=== PATIENT | female | born 1965 | race Caucasian/White ===

== ENCOUNTER 2019-01-04 18:54 | Emergency (ER) | payer SELFPAY ==
[~2019-01-04] VITALS: Ht 162.6 cm; Wt 77.3 kg
[2019-01-04 18:58] VITALS: Ht 162.6 cm; Wt 77.3 kg
[2019-01-04] MEDS ORDERED: ASPIRIN 81 MG TAB PO STA (20:48)
[2019-01-04] MEDS ORDERED: NITROGLYCERIN 2% 1 GM OINT PKT TD STA (20:48)
[2019-01-04] MEDS: NITROGLYCERIN (SL) 0.4 MG TAB SL PRN ×2 (21:17→21:22)
[2019-01-04] MEDS ORDERED: ACETAMINOPHEN 325 MG TAB PO PRN ×2 (22:00→22:30)
[2019-01-04] MEDS ORDERED: ONDANSETRON 4 MG INJ IV PRN ×2 (22:00→22:30)
[2019-01-04] MEDS ORDERED: ACETAMINOPHEN 325 MG TAB PO ONE (22:00)
[2019-01-04 22:22] VITALS: BP 105/72; PULSE 51; RESP 15
[2019-01-04] MEDS ORDERED: NACL 0.9% 3 ML SYG IV SCH (22:30)
[2019-01-04] MEDS ORDERED: morphine 2 MG INJ IV PRN (22:30)
[2019-01-04] MEDS ORDERED: NITROGLYCERIN (SL) 0.4 MG TAB SL PRN (22:30)
[2019-01-04] MEDS ORDERED: BISACODYL (EC) 5 MG TAB PO PRN (22:30)
[2019-01-04] MEDS ORDERED: DOCUSATE SODIUM 100 MG CAP PO PRN (22:30)
--- NOTE | 2019-01-04 22:36 | ERD ---
ER Documentation Chief Complaint Chief Complaint CP, SOB, N/V STARTED AFTER CLEANING DUST; STATES HX OF ASTHMA HPI Patient is a 53-year-old female with no medical problems who presents with chest pain shortness of breath. The symptoms started this morning but were worse with walking. The patient has had vomiting as well. She felt like her left upper extremity, face, and ear were numb. She said the symptoms come and go. She t ook 81 mg aspirin today. Upon review of old medical records this is the patient's first visit to the emergency department. The patient does not currently have a primary doctor. ROS All systems reviewed and are negative except as per history of present illness. PMhx/Soc History of Surgery: Yes (c section x3, appendectomy, tonsillectomy ) Anesthesia Reaction: No Hx Neurological Disorder: No Hx Respiratory Disorders: No Hx Cardiac Disorders: No Hx Psychiatric Problems: No Hx Miscellaneous Medical Probl: No Hx Alcohol Use: No Hx Substance Use: No Hx Tobacco Use: No Smoking Status: Never smoker FmHx Family History: No coronary disease Physical Exam Vitals Vital Signs Date Temp Pulse Resp B/P (MAP) Pulse Ox O2 O2 Flow FiO2 Time Delivery Rate 01/04/19 51 15 105/72 100 Room Air 22:22 (83) 01/04/19 59 21 119/75 96 Room Air 21:15 (90) 01/04/19 98.9 70 19 116/59 99 18:58 (78) Physical Exam Const: No acute distress Head: Atraumatic Eyes: Normal Conjunctiva ENT: Normal External Ears, Nose and Mouth. Neck: Full range of motion. No meningismus. Resp: Clear to auscultation bilaterally Cardio: Regular rate and rhythm, no murmurs Abd: Soft, non tender, non distended. Normal bowel sounds Skin: No petechiae or rashes Back: No midline or flank tenderness Ext: No cyanosis, or edema Neur: Awake and alert Psych: Normal Mood and Affect Result Diagram: 01/04/19211101/04/192111 Results 24 hrs Laboratory Tests Test 01/04/19 21:12 White Blood Count 5.6 10^3/ul Red Blood Count 4.23 10^6/ul Hemoglobin 12.9 g/dl Hematocrit 38.3 % Mean Corpuscular Volume 90.5 fl Mean Corpuscular Hemoglobin 30.5 pg Mean Corpuscular Hemoglobin Concent 33.7 g/dl Red Cell Distribution Width 12.0 % Platelet Count 208 10^3/UL Mean Platelet Volume 9.4 fl Immature Granulocytes % 0.200 % Neutrophils % 41.8 % Lymphocytes % 47.5 % Monocytes % 7.3 % Eosinophils % 2.5 % Basophils % 0.7 % Nucleated Red Blood Cells % 0.0 /100WBC Immature Granulocytes # 0.010 10^3/ul Neutrophils # 2.3 10^3/ul Lymphocytes # 2.7 10^3/ul Monocytes # 0.4 10^3/ul Eosinophils # 0.1 10^3/ul Basophils # 0.0 10^3/ul Nucleated Red Blood Cells # 0.0 10^3/ul Sodium Level 143 mmol/L Potassium Level 3.9 mmol/L Chloride Level 108 mmol/L Carbon Dioxide Level 26 mmol/L Anion Gap 9 Blood Urea Nitrogen 13 mg/dl Creatinine 0.77 mg/dl Est Glomerular Filtrat Rate mL/min > 60 mL/min Glucose Level 96 mg/dl Calcium Level 9.7 mg/dl Troponin I < 0.012 ng/ml Current Medications Medications Dose Sig/Stevenson Start Time Status Last (Trade) Ordered Route PRN Stop Time Admin Dose Reason Admin Aspirin 162 mg ONCE STAT 01/04/19 DC 01/04/19 (Aspirin) PO 20:48 01/04/19 21:17 20:49 1 inch ONCE STAT 01/04/19 DC 01/04/19 Nitroglycerin TD 20:48 01/04/19 21:17 20:49 (Nitroglyceri n 2% Oint) 1 tab Q5M UP TO 3 01/04/19 01/04/19 Nitroglycerin DOSES PRN 21:00 21:22 SL .CHEST (Nitroglyceri PAIN n (Sl Tab) 0.4 Mg) 650 mg ONCE ONCE 01/04/19 DC 01/04/19 Acetaminophen PO 22:00 01/04/19 22:30 (Tylenol 22:01 Tab) Ondansetron 4 mg ER BRIDGE 01/04/19 HCl (Zofran PRN IV 22:00 01/05/19 Inj) NAUSEA/VOMITI 21:59 NG 650 mg ER BRIDGE 01/04/19 Acetaminophen PRN PO 22:00 01/05/19 (Tylenol .MILD PAIN 21:59 Tab) 1-3 OR TEMP IV Flush 3 ml PER 01/04/19 UNV (NS 3 ml) PROTOCOL IV 22:30 Ondansetron 4 mg Q6H PRN 01/04/19 UNV HCl (Zofran IV 22:30 Inj) NAUSEA/VOMITI NG Aspirin 81 mg DAILY PO 01/05/19 UNV (Aspirin) 09:00 1 tab Q5M PRN 01/04/19 UNV Nitroglycerin SL .CHEST 22:30 PAIN (Nitroglyceri n (Sl Tab) 0.4 Mg) 650 mg Q6H PRN 01/04/19 UNV Acetaminophen PO .PAIN 1-3 22:30 (Tylenol OR TEMP Tab) Morphine 2 mg Q4H PRN 01/04/19 UNV Sulfate IV .PAIN 22:30 (morphine) 7-10 Docusate 100 mg Q12H PRN 01/04/19 UNV Sodium PO 22:30 (Colace) .CONSTIPATION Bisacodyl 5 mg DAILY PRN 01/04/19 UNV (Dulcolax) PO 22:30 .CONSTIPATION Procedures/MDM EKG 1 read by me: Rate/Rhythm: Regular rate and rhythm Intervals: Normal Impression: Poor R wave progression EKG 2 read by me: Rate/Rhythm: Regular rate and rhythm Intervals: Normal Impression: Poor R wave progression Chest x-ray read by radiology. Patient is a 53-year-old female who presents with chest pain and shortness of breath. I am concerned for potential acute coronary syndrome. I doubt pneumonia, pneumothorax, pulmonary embolism, or aortic dissection. The patient was given aspirin and nitroglycerin. The patient will be admitted to the care of Dr. Bustillos to a telemetry observation bed. Departure Diagnosis: Primary Impression: Chest pain Chest pain type: unspecified Qualified Codes: R07.9 - Chest pain, unspecified Condition: STELLA Livingston MD Jan 04, 2019 22:36
[2019-01-05] MEDS ORDERED: ASPIRIN 81 MG TAB PO SCH (09:00)
== END 2019-01-04 23:07 | disposition left against medical advice (07) ==
LOC: E/R 18:54 → CANBEDREQ 01-05 13:14
DX: R07.9 Chest pain, unspecified (principal); R40.2142 Coma scale, eyes open, spontaneous, at arrival to emergency department; R40.2362 Coma scale, best motor response, obeys commands, at arrival to emergency department; R40.2252 Coma scale, best verbal response, oriented, at arrival to emergency department; J45.909 Unspecified asthma, uncomplicated
CPT/HCPCS: 36415; 71045; 80048; 80076; 83690; 84484; 85025; 93005